=== PATIENT | male | born 1995 | race Caucasian/White ===

== ENCOUNTER 2017-11-01 10:24 | Day surgery (SDC) | payer OTHER ==
[~2017-11-01 10:24] MED LIST: CEFAZOLIN 1 GM INJ
[2017-11-01] MEDS ORDERED: CEFAZOLIN 2 GM/50 ML (PMX) 50 ML IVPB (11:00)
[2017-11-01] MEDS ORDERED: LIDOCAINE 2% (SDV) 5 ML INJ (12:27)
[2017-11-01] MEDS ORDERED: MEPERIDINE 100 MG INJ (12:27)
[2017-11-01] MEDS ORDERED: PROPOFOL 20 ML (12:27)
[2017-11-01] MEDS ORDERED: MEPERIDINE 25 MG INJ IV (12:30)
[2017-11-01] MEDS ORDERED: ONDANSETRON 4 MG INJ IV (12:30)
[2017-11-01] MEDS ORDERED: HYDROmorphONE 1 MG/5 ML IV SYRINGE IV ×2 (12:30)
[2017-11-01] MEDS ORDERED: METOCLOPRAMIDE 10 MG INJ IV (12:30)
[2017-11-01] MEDS ORDERED: FENTAnyl 50 MCG/ML VIAL IV ×2 (12:30)
[2017-11-01] MEDS ORDERED: OXYCODONE/ACETAMINOPHEN (5/325) TAB PO (12:30)
[2017-11-01] MEDS ORDERED: MIDAZOLAM 1 MG/ML 2 ML INJ IV (12:30)
[2017-11-01] MEDS ORDERED: DIPHENHYDRAMINE 50 MG INJ IV (12:30)
[2017-11-01] MEDS: BUPIVACAINE 0.5% (SDV) 30 ML INJ (13:56)
[2017-11-01] MEDS: FENTAnyl 50 MCG/ML VIAL IV ×2 (14:29→14:57)
[2017-11-01] MEDS ORDERED: HYDROCODONE/APAP (5/325) TAB PO (14:30)
[2017-11-01] MEDS: HYDROmorphONE 1 MG/5 ML IV SYRINGE IV (15:38)
[2017-11-01] MEDS: OXYCODONE/ACETAMINOPHEN (5/325) TAB PO (15:59)
== END 2017-11-01 16:38 | disposition home or self-care (01) ==
LOC: SDS 10:24
DX: I86.1 Scrotal varices (principal)
CPT/HCPCS: 55530; 88304